=== PATIENT | male | born 1985 | race Caucasian/White ===

== ENCOUNTER 2016-07-09 06:10 | Emergency (ER) | payer OTHER ==
[2016-07-09 06:37] VITALS: BMI 32.0
[2016-07-09] MEDS ORDERED: IBUPROFEN 400 MG TABLET (FP) PO ONE ×2 (07:11→07:39)
[2016-07-09] MEDS ORDERED: SODIUM CHLORIDE 1,000 ML IV STA (07:11)
--- NOTE | 2016-07-09 07:15 | PDOC ---
History of Present Illness - General Chief Complaint: SIRS, Suspected/Possible Stated Complaint: FEVER, HEADACHE Time Seen by Provider: 07/09/16 06:33 History Source: Patient, Significant Other Exam Limitations: No Limitations - History of Present Illness Initial Comments: 07/09/16 07:12 31yo Male patient presents to ED c/o persistent fever (102.6) for the past 2 days. Associated dizziness, h/a. Patient states he was seen at Urgent care yesterday for same sx. Influenza neg. WBC 2.6. Hgb 17.5. Patient went home but fever still persist. Tylenol taken with minimal relief. Patient denies any other complaints at this time. Timing/Duration: reports: yesterday Severity: reports: moderate Possible Cause: Yes: no prior episodes Past History - Travel Traveled outside of the country in the last 30 days: No Close contact w/someone who was outside of country & ill: No - Past Medical History Allergies/Adverse Reactions: Allergies Allergy/AdvReac Type Severity Reaction Status Date / Time No Known Allergies Allergy Verified 07/09/16 06:34 Home Medications: Ambulatory Orders NK [No Known Home Medication] 07/09/16 - Psycho/Social/Smoking Cessation Hx Suicidal Ideation: No Smoking History: Never smoked Have you smoked in the past 12 months: No Information on smoking cessation initiated: No Hx Alcohol Use: No Drug/Substance Use Hx: No Respiratory Specific PMHX - Complaint Specific PMHX Angina: No Bronchitis: No Pneumonia: No Pulmonary Embolus: No TB (Tuberculosis): No Review of Systems - Review of Systems Able to Perform ROS?: Yes Is the patient limited Peruvian proficient: No Constitutional: Yes: Chills, Fever, Weakness HEENTM: No: Ear Pain, Nose Congestion, Throat Pain, Throat Swelling, Mouth Pain , Difficulty Swallowing, Mouth Swelling Respiratory: No: Cough, Shortness of Breath, Stridor, Wheezing Cardiac (ROS): No: Chest Pain, Edema, Lightheadedness, Palpitations, Syncope, Chest Tightness ABD/GI: No: Diarrhea, Nausea, Poor Appetite, Poor Fluid Intake, Vomiting, Abdominal cramping : No: Dysuria, Flank Pain, Hematuria Musculoskeletal: No: Back Pain Integumentary: No: Bruising, Erythema, Rash Neurological: Yes: Headache, Dizziness. No: Numbness, Paresthesia, Seizure, Tingling, Tremors, Weakness All Other Systems: Reviewed and Negative *Physical Exam - Vital Signs Last Vital Signs Temp Pulse Resp BP Pulse Ox 102.2 F H 112 H 20 140/90 100 07/09/16 06:34 07/09/16 06:34 07/09/16 06:34 07/09/16 06:34 07/09/16 06:34 - Physical Exam General Appearance: Yes: Nourished, Appropriately Dressed. No: Apparent Distress, Mild Distress, Moderate Distress, Severe Distress HEENT: positive: EOMI, BARRERA, Normal ENT Inspection, Normal Voice, Symmetrical, TMs Normal, Pharynx Normal. negative: Pharyngeal Erythema, Tonsillar Exudate, Tonsillar Erythema, Nasal Congestion, Rhinorrhea, TM Bulging, TM Dull, TM Erythema Neck: positive: Trachea midline, Supple. negative: Lymphadenopathy (R), Lymphadenopathy (L) Respiratory/Chest: positive: Lungs Clear, Normal Breath Sounds. negative: Respiratory Distress, Accessory Muscle Use, Labored Respiration, Rapid RR Cardiovascular: positive: Regular Rhythm, Regular Rate. negative: Edema, JVD Gastrointestinal/Abdominal: positive: Normal Bowel Sounds, Soft. negative: Distended, Guarding, Rebound, Tenderness Musculoskeletal: positive: Normal Inspection. negative: CVA Tenderness Extremity: positive: Normal Capillary Refill. negative: Erythema, Inflammation Integumentary: positive: Normal Color, Dry, Warm. negative: Erythema, Moist, Petechiae, Rash, Bruising Neurologic: positive: cloth desizing range tender II-XII NML intact, Fully Oriented, Alert, Normal Mood/ Affect, Normal Response, Motor Strength 5/5
--- NOTE | 2016-07-09 07:31 | PDOC ---
ED Treatment Course - LABORATORY CBC & Chemistry Diagram: 07/09/16 07:33 07/09/16 07:33 Progress Note - Progress Note Progress Note: I have received report from DOTTIE Campbell regarding this patient. Pt's initial chief complaint: fever x 2 days Pt's work up completed prior to sign out: none Pt treatment given from prior staff: IV fluid and Ibuprofen Pt plan to be completed: Awaiting results of all labs, CXR, influenza and rapid strep Dispo: Pending Medical Decision Making - Medical Decision Making A/P: 31 y/o afebrile male c/o fever x 2 days. Pt has associated dizziness and KAN. He was seen at urgent care yesterday for same symptoms and had negative flu. He was initially worked up by DOTTIE Campbell. Awaiting results of all labs, CXR, Influenza, rapid strep. Influenza A&B - negative Rapid strep - cannot be performed because lab ran out of kits; culture will be resulted tomorrow. CXR IMPRESSION: No acute pathology. Gave patient all of his results. He is no longer febrile or tachycardic. Informed him he most likely has a viral syndrome. Instructed him to alternate between 650mg of Tylenol and 600mg of Motrin every 3 hours for fever, get plenty of rest and drink lots of fluids. I did inform him that his fever could last up to 2 weeks. Instructed him to f/u with his PCP on Sunday and return to the ER with any worsening or concerning symptoms. The patient verbalizes understanding of all instructions, has no further questions and is awaiting discharge. *DC/Admit/Observation/Transfer Diagnosis at time of Disposition: Viral syndrome - Discharge Dispostion Disposition: HOME Condition at time of disposition: Improved - Referrals Referrals: Brent Tapia MD [Primary Care Provider] - Call tomorrow - Patient Instructions Printed Discharge Instructions: DI for Viral Syndrome Additional Instructions: Discharge Instructions: -Alternate between 650mg of Tylenol and 600mg of Motrin every 3 hours for fever -Get plenty of rest -Drink at least 64oz of fluids daily -Call Dr. Tapia tomorrow to schedule follow up appointment -Return to the ER with any worsening or concerning symptoms - Post Discharge Activity Work/School Note: Back to Work
[2016-07-09 07:42] LABS: URINE APPEARANCE CLEAR; URINE BILIRUBIN NEGATIVE (NEGATIVE); URINE BLOOD NEGATIVE (NEGATIVE); URINE COLOR LTYELLOW; URINE GLUCOSE (UA) NEGATIVE (NEGATIVE); URINE KETONE NEGATIVE (NEGATIVE); URINE LEUK ESTERASE NEGATIVE (NEGATIVE); URINE NITRITE NEGATIVE (NEGATIVE); URINE PROTEIN NEGATIVE (NEGATIVE); URINE UROBILINOGEN NEGATIVE E.U./dl (0.2-1.0)
[2016-07-09 07:43] LABS: BASOPHIL 0.7 % (0-2.0); EOSINOPHIL 0.3 % (0-4.5); MCH 26.6 pg (25.7-33.7); MCHC 33.6 g/dl (32.0-35.9); MEAN CELL VOLUME 79.2 fl (80-96); MEAN PLT VOLUME 7.1 fl (7.5-11.1); NEUTROPHILS 49.9 % (42.8-82.8); PLATELET COUNT 117 K/MM3 (134-434); RDW 13.8 % (11.9-15.9); WHITE BLOOD COUNT 2.9 K/mm3 (4.0-10.0)
[2016-07-09 08:11] LABS: ALBUMIN 3.7 g/dl (3.4-5.0); BILIRUBIN,DIRECT 0.2 mg/dL (0.0-0.2); BILIRUBIN,TOTAL 0.5 mg/dL (0.2-1.0); CALCIUM 8.2 mg/dL (8.5-10.1); COCKROFT - GAULT 150.3; TOT PROT 7.2 g/dl (6.4-8.2)
[2016-07-09 09:18] VITALS: BP 122/75; PULSE 89; TEMP 99.6
== END 2016-07-09 09:34 | disposition home or self-care (01) ==
LOC: JER 06:10
PROC: 3E0337Z Introduction of Electrolytic and Water Balance Substance into Peripheral Vein, Percutaneous Approach (ICD-10-PCS; principal; 2016-07-09)
DX: B34.9 Viral infection, unspecified (principal)
CPT/HCPCS: 36415; 71020-TC; 80048; 80076; 81003; 85025; 87070; 87804; 99284-25

== ENCOUNTER 2018-03-27 13:18 | Emergency (ER) | payer OTHER ==
[2018-03-27 13:29] VITALS: BP 140/85; PULSE 92; TEMP 98.5; BMI 31.4
--- NOTE | 2018-03-27 13:30 | PDOC ---
Rapid Medical Evaluation Time Seen by Provider: 03/27/18 13:26 Medical Evaluation: Allergies Allergy/AdvReac Type Severity Reaction Status Date / Time No Known Allergies Allergy Verified 07/09/16 06:34 03/27/18 13:26 I have performed a brief in-person evaluation of this patient. The patient presents with a chief complaint of: lightheadedness Pertinent physical exam findings: OP-WNL PERRLA. EOMI. CNII-XII grossly intact. I have ordered the following: nothing The patient will proceed to the ED for further evaluation. Discharge Disposition - Diagnosis Lightheaded - Referrals Referrals: Brent Tapia MD [Primary Care Provider] - - Patient Instructions - Post Discharge Activity
--- NOTE | 2018-03-27 14:39 | PDOC ---
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 presents for evaluation of intermittent episodes of HTN over the last 3 months asymptomatic now Past History - Past Medical History Allergies/Adverse Reactions: Allergies Allergy/AdvReac Type Severity Reaction Status Date / Time No Known Allergies Allergy Verified 03/27/18 13:29 Home Medications: Ambulatory Orders NK [No Known Home Medication] 07/09/16 COPD: No HTN: Yes (PRE) - Suicide/Smoking/Psychosocial Hx Smoking History: Never smoked Have you smoked in the past 12 months: No Information on smoking cessation initiated: No Hx Alcohol Use: No Drug/Substance Use Hx: No Substance Use Type: None Review of Systems - Review of Systems Constitutional: Yes: See HPI *Physical Exam - Vital Signs Last Vital Signs Temp Pulse Resp BP Pulse Ox 98.5 F 92 H 18 140/85 99 03/27/18 13:27 03/27/18 13:27 03/27/18 13:27 03/27/18 13:27 03/27/18 13:27 - Physical Exam Comments: 03/27/18 14:36 HEAD: NC/AT EYES: Conjuntiva clear NOSE: No d/c NEUROLOGIC: No gross sensory or motor deficits UE SKIN: Normal color and temperature no lesions or rashes Moderate Sedation - Procedure Monitoring Vital Signs: Procedure Monitoring Vital Signs Temperature 98.5 F 03/27/18 13:27 Pulse Rate 92 H 03/27/18 13:27 Respiratory Rate 18 03/27/18 13:27 Blood Pressure 140/85 03/27/18 13:27 O2 Sat by Pulse Oximetry (%) 99 03/27/18 13:27 Medical Decision Making - Medical Decision Making 03/27/18 14:37 asymptomatic now, reccommend PC f/u ? urine VMA *DC/Admit/Observation/Transfer Diagnosis at time of Disposition: Lightheaded - Discharge Dispostion Disposition: HOME Condition at time of disposition: Improved Decision to Admit order: No - Referrals Referrals: Brent Tapia MD [Primary Care Provider] - - Patient Instructions Additional Instructions: Return to the emergency room should symptoms worsen or go unresolved. Please follow-up with your primary care physician in one to 2 days for further evaluation and treatment options. Recommend urine VMA for futher work up - Post Discharge Activity
== END 2018-03-27 14:48 | disposition home or self-care (01) ==
LOC: JERFT 13:18
DX: R42 Dizziness and giddiness (principal); Z89.611 Acquired absence of right leg above knee; Z89.512 Acquired absence of left leg below knee; Z86.718 Personal history of other venous thrombosis and embolism
CPT/HCPCS: 99281-25